=== PATIENT | female | born 1955 | race Caucasian/White ===

== ENCOUNTER 2017-11-16 22:27 | Emergency (ER) | payer MEDICAID ==
[2017-11-16 22:34] VITALS: BP 147/85; PULSE 83; RESP 16; TEMP 99.4; O2SAT 98
--- NOTE | 2017-11-16 23:21 | C.PDOC ---
History Of Present Illness 62 yo female w/PMHx of HTN come in for evaluation of gradual onset of Right shoulder pain for past few days. As per pt, since today AM, pain is severe, localized over Right shoulder, worse with Right arm movement ' was unable to lift up Right arm due to pain". Otherwise, pt denies known trauma or injury, fever, chills, headache, dizziness, neck pain, CP, SOB, dyspnea, diaphoresis, palpitation, abd. pain, N/V, denies weakness, sensory or vascular deficits to Right arm, denies skin changes. Ambulate to Ed for evaluation, appears in pain. Time Seen by Provider: 11/16/17 22:35 Chief Complaint (Nursing): Upper Extremity Problem/Injury History Per: Patient Onset/Duration Of Symptoms: Gradual Past Medical History Reviewed: Historical Data, Nursing Documentation, Vital Signs Vital Signs: Last Vital Signs Temp 99.4 F 11/16/17 22:31 Pulse 83 11/16/17 22:31 Resp 16 11/16/17 22:31 BP 147/85 11/16/17 22:31 Pulse Ox 98 11/16/17 23:41 - Medical History PMH: HTN Family History: States: No Known Family Hx - Social History Hx Tobacco Use: No Hx Alcohol Use: No Hx Substance Use: No Review Of Systems Except As Marked, All Systems Reviewed And Found Negative. Constitutional: Negative for: Fever, Chills ENT: Negative for: Throat Pain Cardiovascular: Negative for: Chest Pain, Palpitations, Edema, Light Headedness Respiratory: Negative for: Cough, Shortness of Breath, Wheezing Gastrointestinal: Negative for: Nausea, Vomiting, Abdominal Pain Musculoskeletal: Positive for: Shoulder Pain (Right) Skin: Negative for: Rash, Lesions, Bruising Neurological: Negative for: Weakness, Numbness, Headache, Dizziness Physical Exam - Physical Exam Appears: Well, Non-toxic, No Acute Distress Skin: Normal Color, Warm, Dry, No Rash Head: Normacephalic Eye(s): bilateral: PERRL Nose: No Flaring, No Discharge Oral Mucosa: Moist Neck: Trachea Midline, Supple Cardiovascular: Rhythm Regular, No Murmur, No JVD, Other ((-) carotid bruits B/L ) Respiratory: No Decreased Breath Sounds, No Accessory Muscle Use, No Stridor, No Wheezing Gastrointestinal/Abdominal: Soft, No Tenderness Back: No CVA Tenderness, No Vertebral Tenderness Extremity: Normal ROM (mild discomfort to Right shoulder extension, abduction due to pain), Tenderness (superior aspetc Right shoulder. No palpable deformity , no skin changes.), No Deformity, No Swelling DTR: Bicep (R): 2+, Tricep (R): 2+ Neurological/Psych: Oriented x3, Normal Speech, Normal Motor, Normal Sensation ED Course And Treatment ECG: Interpreted By Me, Viewed By Me () ECG Rhythm: Sinus Rhythm Interpretation Of ECG: SR@71/min, NAD, no acute T wave or ST-T changes O2 Sat by Pulse Oximetry: 98 Pulse Ox Interpretation: Normal - Other Rad Right shoulder X-Ray: Interpreted by Me, Viewed By Me Interpretation: (+) joint calsification, no acute fx or sublux Progress Note: On re-evaluation, pt is afebrile, hemodynamicaly stable. Non- toxic. PulsEOx 98% RA. Neck: Supple, (-) JVD, (-) carotid bruits B/L. ENT: no acute findings. Lungs: CTA B/L, BS equal B/L. CVS: (+)S1S2, reg. Abd: benig, (- ) guarding, (-) rebound. RUE: mod tenderness over superior aspect Right shoulder. No defomrity, no neurovascular deficits, no skin changes. Neurologicaly intact. Imaging review (+) Right shoulder calcification,mild DJD. Sling applied to Right shoulder. Pt advised. ref. to f/u with PMD, Ortho in 2- 3 days for re-evaluation. return to ED if any worsening or new changes. Disposition Counseled Patient/Family Regarding: Studies Performed, Diagnosis, Need For Followup, Rx Given - Disposition Referrals: Kike Tan MD [Staff Provider] - Disposition: HOME/ ROUTINE Disposition Time: 23:40 Condition: STABLE Additional Instructions: Light duty to Right shoulder, sling take medication as prescribed Follow up with PMD, Orthopedist in 2-3 days for re-evaluation. return to ED if any worsening or new changes. Prescriptions: Prednisone [Deltasone] 40 mg PO DAILY #6 tablet traMADol [Ultram] 50 mg PO TID #10 tab Instructions: Calcific Tendonitis of the Shoulder (DC) Forms: [employer] (Indonesian) - Clinical Impression Clinical Impression: Calcific shoulder tendinitis
--- NOTE | 2017-11-17 08:52 | RAD ---
Right shoulder three views History: Shoulder pain. Comparison: None available. Findings: Lobulated calcifications adjacent to the right proximal humerus suggestive for calcific tendinopathy. Productive change at level of the greater tuberosity of the proximal humerus. Narrowing of the right glenohumeral joint space and acromioclavicular joint spaces. No evidence for acute displaced fracture or dislocation. Impression: Findings suggestive for calcific tendinopathy of the right proximal humerus.
--- NOTE | 2017-11-19 14:59 | CARD ---
APPROVED REPORT EKG Measurement Heart [id number] <Conclusion> Normal sinus rhythm Possible Left atrial enlargement Nonspecific ST and T wave abnormality Abnormal ECG
== END 2017-11-17 00:41 | disposition home or self-care (01) ==
LOC: C.ER 22:27
DX: M75.31 Calcific tendinitis of right shoulder (principal)